=== PATIENT | female | born 1995 | race Caucasian/White ===

== ENCOUNTER 2017-06-24 13:23 | Emergency (ER) | payer MEDICAID ==
[2017-06-24 17:10] VITALS: BP 115/70
== END 2017-06-24 17:10 | disposition home or self-care (01) ==
LOC: ED 13:23
DX: M94.0 Chondrocostal junction syndrome [Tietze] (principal); S29.011A Strain of muscle and tendon of front wall of thorax, initial encounter; X58.XXXA Exposure to other specified factors, initial encounter; Y93.89 Activity, other specified; Y92.89 Other specified places as the place of occurrence of the external cause; Y99.8 Other external cause status
CPT/HCPCS: J1885

== ENCOUNTER 2019-02-15 19:43 | Emergency (ER) | payer MEDICAID ==
[~2019-02-15] VITALS: Ht 170.2 cm; Wt 111.1 kg
[2019-02-15 19:47] VITALS: Ht 170.2 cm; Wt 111.1 kg
[2019-02-15 22:07] VITALS: BP 113/70
== END 2019-02-15 22:07 | disposition home or self-care (01) ==
LOC: ED 19:43
DX: S39.012A Strain of muscle, fascia and tendon of lower back, initial encounter (principal); N39.0 Urinary tract infection, site not specified; X58.XXXA Exposure to other specified factors, initial encounter; Y93.89 Activity, other specified; Y92.89 Other specified places as the place of occurrence of the external cause; Y99.8 Other external cause status
CPT/HCPCS: J1885